=== PATIENT | female | born 1955 | race Caucasian/White ===

== ENCOUNTER 2016-07-07 16:15 | Emergency (ER) | payer MEDICARE, OTHER ==
[2016-07-07] MEDS ORDERED: IOPAMIDOL 370 (76%) 100 ML VIAL IV ONE (16:16)
[2016-07-07 17:17] LABS: ABSOLUTE NEUTROPHIL COUNT 4.6 K/mm3 (1.8-7.7); BASO % 0.5 % (0.2-1.0); EOS # 0.1 (0.0-0.5); EOS % 1.5 % (0.9-2.9); HEMATOCRIT 39.8 % (37.0-47.0); HEMOGLOBIN 12.5 gm/l (12.0-16.0); IMM NEUT # 0.1 K/mm3 (0-0.2); IMM NEUT% 0.7 % (0-1); LYMPH # 3.1 (1.0-4.8); LYMPH % 36.3 % (15-45); MEAN CELL VOLUME 96.6 fl (81.0-99.0); MEAN CORPUSCULAR HEMOGLOBIN 30.3 pg (27.0-31.0); MEAN CORPUSCULAR HGB CONC 31.4 g/dl (33.0-37.0); MEAN PLATELET VOLUME 9.2 fl (7.4-10.4); MONO # 0.6 (0.0-0.8); MONO % 7.4 % (4-12); NEUT % 53.6 % (43-75); PLATELET COUNT 238 K/mm3 (130-400); RED CELL DISTRIBUTION WIDTH 14.1 % (11.5-14.5)
[2016-07-07 17:29] LABS: ALB/GLOB RATIO 1.4 (>1.0); ALBUMIN 4.1 gm/dL (3.5-5.7); CALCIUM 9.7 mg/dL (8.6-10.3)
--- NOTE | 2016-07-07 18:16 | CT ---
Exam: CT angiogram chest with contrast Comparison: Chest radiograph 07/07/2016, CT cervical spine 11/11/2015 History: Difficulty breathing, elevated d-dimer. Technique: CT angiogram of the chest was obtained following the administration of 80 mL Isovue-370 intravenous contrast using a CT angiogram pulmonary embolism protocol which was supplemented with multiplanar 3-D reformations constructed at an independent workstation. Findings: There is no evidence of acute pulmonary thromboembolic disease through the proximal subsegmental level. There is no acute pulmonary parenchymal abnormality. There is no pleural or pericardial effusion. There is no significant mediastinal or hilar lymphadenopathy by size criteria. Low left cervical lymph nodes are more prominent for number rather than size and are unchanged. 9 mm lymph node interposed between the left carotid and subclavian arteries is similar. Limited evaluation of the upper abdomen demonstrates postsurgical changes in the stomach. There are several splenic artery aneurysms, likely of no clinical concern. No worrisome lytic or blastic osseous lesion is identified. Bridging osteophytes are noted within the thoracic spine. IMPRESSION: No evidence of acute pulmonary thromboembolic disease, other acute findings identified to explain patient's symptoms. Report was uploaded to the EMR at 1811 hours 07/07/2016.
--- NOTE | 2016-07-07 20:37 | US ---
Exam: Bilateral lower extremity venous ultrasound COMPARISON: None INDICATION: Mild bilateral lower extremity swelling, shortness of breath. Findings: The deep venous system of both lower extremities was evaluated with color flow, compression, augmentation and spectral analysis. The deep venous system of both lower extremities from the popliteal veins up to the common femoral veins is patent without evidence of DVT. Proximal calf veins appear patent as well. IMPRESSION: No evidence of DVT within either lower extremity. Report was uploaded to the EMR at 2033 hours 07/07/2016.
== END 2016-07-07 21:01 | disposition home or self-care (01) ==
LOC: ED 16:15
DX: R06.02 Shortness of breath (principal); M79.89 Other specified soft tissue disorders; R07.89 Other chest pain; E11.9 Type 2 diabetes mellitus without complications; Z86.718 Personal history of other venous thrombosis and embolism
CPT/HCPCS: 85025; 80053; 71275; 99284; 93005; 93970; 99283; Q9967